=== PATIENT | female | born 1950 | race Two or more races ===

== ENCOUNTER 2023-06-11 10:44 | Inpatient (IN) | payer OTHER ==
[~2023-06-11] VITALS: Ht 154.9 cm; Wt 83.9 kg
[2023-06-12] MEDS ORDERED: SYNTHROID125 MCG PO (14:25)
[2023-06-12] MEDS ORDERED: AVAPRO150 MG PO (14:26)
[2023-06-12] MEDS ORDERED: HYDROCHLOROTH12.5 MG PO (14:26)
[2023-06-12] MEDS ORDERED: ALDACTONE25 MG PO (14:26)
[2023-06-12] MEDS ORDERED: CRESTOR40 MG PO (14:27)
[2023-06-12] MEDS ORDERED: CARVEDILOL6.25 MG PO (14:27)
[2023-06-12] MEDS ORDERED: DETROL LA4 MG PO (14:28)
[2023-06-12] MEDS ORDERED: VITAMIN D PO (14:28)
[2023-06-12] MEDS ORDERED: SINGULAIR10 MG PO (14:28)
[2023-06-18] MEDS ORDERED: FAMOTIDINE20 MG (08:32)
[2023-06-18] MEDS ORDERED: VITAMIN D310 MC4 (08:33)
[2023-06-18] MEDS ORDERED: HALOBETASOL PRO15 GM (08:33)
== END 2023-06-25 18:09 | disposition home or self-care (01) | DRG 330 ==
LOC: O/R 06-18 05:35 → SURG 06-18 12:00
PROVIDERS: Internal Medicine Geriatric Medicine; Specialist; ADMIT Colon & Rectal Surgery; ATTEND Colon & Rectal Surgery
PROC: 4A12X4Z Monitoring of Cardiac Electrical Activity, External Approach (ICD-10-PCS; 2023-06-18)
PROC: 0DQ80ZZ Repair Small Intestine, Open Approach (ICD-10-PCS; principal; 2023-06-25)
PROC: 0DBP0ZZ Excision of Rectum, Open Approach (ICD-10-PCS; 2023-06-25)
PROC: 0DTN0ZZ Resection of Sigmoid Colon, Open Approach (ICD-10-PCS; 2023-06-25)
PROC: 07BB0ZZ Excision of Mesenteric Lymphatic, Open Approach (ICD-10-PCS; 2023-06-25)
PROC: 0DNL0ZZ Release Transverse Colon, Open Approach (ICD-10-PCS; 2023-06-25)
DX: C18.4 Malignant neoplasm of transverse colon (principal); K91.71 Accidental puncture and laceration of a digestive system organ or structure during a digestive system procedure; K92.1 Melena; R59.0 Localized enlarged lymph nodes; N73.6 Female pelvic peritoneal adhesions (postinfective); N99.4 Postprocedural pelvic peritoneal adhesions; E03.9 Hypothyroidism, unspecified; I11.9 Hypertensive heart disease without heart failure

== ENCOUNTER 2023-06-30 13:09 | Emergency (ER) | payer OTHER ==
[~2023-06-30] VITALS: Ht 154.9 cm; Wt 77.1 kg
[~2023-06-30 13:09] MED LIST: ALDACTONE25 MG PO; AVAPRO150 MG PO; CARVEDILOL6.25 MG PO; CRESTOR40 MG PO; DETROL LA4 MG PO; FAMOTIDINE20 MG; HALOBETASOL PRO15 GM; HYDROCHLOROTH12.5 MG PO; SINGULAIR10 MG PO; SYNTHROID125 MCG PO; VITAMIN D PO; VITAMIN D310 MC4
== END 2023-06-30 20:24 | disposition home or self-care (01) ==
LOC: ER 13:09
PROVIDERS: General Practice
DX: R10.9 Unspecified abdominal pain (principal); J45.909 Unspecified asthma, uncomplicated; I10 Essential (primary) hypertension; F32.89 Other specified depressive episodes; Z85.89 Personal history of malignant neoplasm of other organs and systems; Z98.890 Other specified postprocedural states; Z90.49 Acquired absence of other specified parts of digestive tract; K80.20 Calculus of gallbladder without cholecystitis without obstruction; J90 Pleural effusion, not elsewhere classified
CPT/HCPCS: 36415; 71046; 74177; 96365; 96366; 96372; 99284; J3490; J7030; Q9965